=== PATIENT | female | born 1935 | race Caucasian/White ===

== ENCOUNTER 2020-02-12 19:24 | Inpatient (IN) | payer MEDICARE ==
[~2020-02-12] VITALS: Ht 162.6 cm; Wt 83.1 kg
[2020-02-12 19:38] VITALS: BP 211/99
[2020-02-12] MEDS ORDERED: METFORMIN HCL500 M3 PO ×2 (19:42→21:58)
[2020-02-12 20:08] LABS: URINE BILIRUBIN NEGATIVE (Negative); URINE BLOOD NEGATIVE (Negative); URINE CLARITY CLEAR; URINE COLOR YELLOW; URINE GLUCOSE-RANDOM NEGATIVE (Negative); URINE KETONES 1+ (Negative); URINE LEUKOCYTES-REFLEX TRACE (Negative); URINE PROTEIN TRACE (Negative); URINE UROBILINOGEN 0.2 E.U./dl (0.2-1.0)
[2020-02-12 20:10] LABS: URINE NITRITE-REFLEX POSITIVE (Negative)
[2020-02-12 20:21] LABS: ABSOLUTE LYMPHOCYTES 0.9 thou/uL (0.8-5.3); ABSOLUTE MONOCYTES 0.5 thou/uL (0.0-1.2); ABSOLUTE NEUTROPHILS 7.4 thou/uL (1.6-8.1); BASOPHILS 0.4 %; HEMATOCRIT 37.2 % (37.0-47.0); HEMOGLOBIN 12.3 gm/dL (12.0-15.0); LYMPHOCYTES 9.7 %; MCH 28.3 pg (26.0-34.0); MCHC 33.1 g/dL (28.0-37.0); MCV 85.5 fL (80.0-100.0); MONOCYTES 5.6 %; MPV 7.3 fl. (7.2-11.1); NUCLEATED RBCS 0 /100WBC; PLATELET COUNT* 256 thou/uL (150-400); POLYS 84.3 %; RBC 4.35 mil/uL (4.20-5.00); RDW-CV 17.7 % (10.5-14.5); WBC 8.8 thou/uL (4.0-11.0)
[2020-02-12 20:24] LABS: BACTERIA-REFLEX >30 Many /HPF (None Seen); CASTS None Seen /LPF (None Seen); CRYSTALS None Seen /LPF (None Seen); SQUAMOUS 0-3 Few /LPF (0-3); URINE WBC-REFLEX >25 Many /HPF (0-5)
[2020-02-12 20:25] LABS: URINE RBC 0-2 Rare /HPF (0-2)
[2020-02-12 20:26] LABS: CALCIUM 9.2 mg/dL (8.5-10.1); CREATININE 1.2 mg/dL (0.6-1.3)
[2020-02-12 20:36] LABS: ALBUMIN 3.9 g/dL (3.4-5.0); MAGNESIUM 1.6 mg/dL (1.8-2.4); TOTAL BILIRUBIN 0.6 mg/dL (<0.1-1.0); TOTAL PROTEIN 7.7 g/dL (6.4-8.2)
[2020-02-12] MEDS ORDERED: MELATONIN3 M1 PO (21:57)
[2020-02-12] MEDS ORDERED: FLEXERIL PO (21:57)
[2020-02-12] MEDS ORDERED: POTASSIUM20 PO (21:58)
[2020-02-12] MEDS ORDERED: HYDROCHLOROTHIA25 M2 PO (21:58)
[2020-02-12] MEDS ORDERED: ASA81BEC PO (21:58)
[2020-02-12] MEDS ORDERED: VESICARE 5 MG TA5 M1 PO (21:59)
[2020-02-12] MEDS ORDERED: DILTIAZEM HCL30 MG PO (21:59)
[2020-02-12] MEDS ORDERED: HYDRALAZINE 2525 MG PO (21:59)
[2020-02-12] MEDS ORDERED: DICYCLOMINE HCL20 MG PO (22:00)
[2020-02-12] MEDS ORDERED: XANAX 0.5 MG0.5 MG PO (22:00)
[2020-02-12] MEDS ORDERED: TRAZODONE HCL100 MG PO (22:00)
[2020-02-12] MEDS ORDERED: LEXAPRO 10 MG T10 M1 PO (22:00)
[2020-02-12] MEDS ORDERED: PROTONIX40 M4 PO (22:01)
[2020-02-12] MEDS ORDERED: LEVOTHYROXINE88 MC1 PO (22:01)
[2020-02-12] MEDS ORDERED: LIPITOR40 MG PO (22:01)
[2020-02-12] MEDS ORDERED: DOXEPIN 50MG CA50 M1 PO (22:01)
[2020-02-12] MEDS ORDERED: ELIQUIS2.5 MG PO (22:02)
[2020-02-12 22:30] VITALS: BP 175/86
[2020-02-12 23:00] VITALS: BP 154/84
[2020-02-13] VITALS (7 sets, daily range): BP systolic 122–156; BP diastolic 58–97
--- NOTE | 2020-02-13 09:07 | EKG ---
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: EDWINA Montanez : 1935 Requested By: Poonam Ray Order Number: [id number] MD: Dre Bey Measurements Intervals [place] Rate: 87 P: 61 [place]: 238 QRS: 8 QRSD: 113 T: 8 QT: 371 QTc: 447 Interpretive Statements Sinus rhythm old anterior infarction Prolonged [place] interval LVH with secondary repolarization abnormality No previous ECG available for comparison Electronically Signed On 02-13-2020 9:06:56 SYSTEMS INTEGRATOR by Dre Bey [email or web address] <ELECTRONICALLY SIGNED> By: Dre Bey MD, FACC 02/13/20 0906 33 33 Dre Bey MD, [facility] /EPI
[2020-02-14 05:40] VITALS: BP 134/66
[2020-02-14 07:40] VITALS: BP 143/62
[2020-02-14] MEDS ORDERED: MACROBID 100 M100 MG PO (07:47)
[2020-02-14] MEDS ORDERED: ZOFRAN 4 MG ORAL4 MG PO (07:47)
[2020-02-14 08:27] VITALS: BP 134/66
[2020-02-14 09:46] LABS: HEMATOCRIT 32.3 % (37.0-47.0); HEMOGLOBIN 10.7 gm/dL (12.0-15.0); MCH 28.9 pg (26.0-34.0); MCHC 33.1 g/dL (28.0-37.0); MCV 87.1 fL (80.0-100.0); MPV 7.4 fl. (7.2-11.1); RBC 3.7 mil/uL (4.20-5.00); RDW-CV 17.3 % (10.5-14.5); WBC 5.7 thou/uL (4.0-11.0)
[2020-02-14 10:10] VITALS: BP 134/66
[2020-02-14 10:12] LABS: ALBUMIN 3.1 g/dL (3.4-5.0); CALCIUM 8.3 mg/dL (8.5-10.1); POTASSIUM 3.1 mmol/L (3.5-5.1); TOTAL BILIRUBIN 0.5 mg/dL (<0.1-1.0); TOTAL PROTEIN 6.3 g/dL (6.4-8.2)
[2020-02-14 13:01] VITALS: BP 134/66
== END 2020-02-14 13:06 | disposition home or self-care (01) | DRG 690 ==
LOC: M.ERS 19:24 → M.TBA-ER 21:17 → M.3W 21:17
PROVIDERS: Emergency Medicine; Internal Medicine; ADMIT Internal Medicine; ATTEND Internal Medicine
DX: N39.0 Urinary tract infection, site not specified (principal); E87.1 Hypo-osmolality and hyponatremia; D68.69 Other thrombophilia; E11.9 Type 2 diabetes mellitus without complications; E87.6 Hypokalemia; E83.42 Hypomagnesemia; I48.91 Unspecified atrial fibrillation; K59.00 Constipation, unspecified; Z20.828 Contact with and (suspected) exposure to other viral communicable diseases; Z79.84 Long term (current) use of oral hypoglycemic drugs; Z85.3 Personal history of malignant neoplasm of breast; Z90.12 Acquired absence of left breast and nipple; Z79.82 Long term (current) use of aspirin; Z79.899 Other long term (current) drug therapy; Z23 Encounter for immunization; Z88.2 Allergy status to sulfonamides; Z91.048 Other nonmedicinal substance allergy status

== ENCOUNTER 2020-05-02 16:28 | Emergency (ER) | payer OTHER ==
[~2020-05-02] VITALS: Ht 162.6 cm; Wt 78.0 kg
[~2020-05-02 16:28] MED LIST: ASA81BEC PO; DICYCLOMINE HCL20 MG PO; DILTIAZEM HCL30 MG PO; DOXEPIN 50MG CA50 M1 PO; ELIQUIS2.5 MG PO; FLEXERIL PO; HYDRALAZINE 2525 MG PO; HYDROCHLOROTHIA25 M2 PO; LEVOTHYROXINE88 MC1 PO; LEXAPRO 10 MG T10 M1 PO; LIPITOR40 MG PO; MACROBID 100 M100 MG PO; MELATONIN3 M1 PO; METFORMIN HCL500 M3 PO; POTASSIUM20 PO; PROTONIX40 M4 PO; TRAZODONE HCL100 MG PO; VESICARE 5 MG TA5 M1 PO; XANAX 0.5 MG0.5 MG PO; ZOFRAN 4 MG ORAL4 MG PO
[2020-05-02 17:06] LABS: HEMATOCRIT 41.3 % (37.0-47.0); HEMOGLOBIN 13.4 gm/dL (12.0-15.0); MCH 28.7 pg (26.0-34.0); MCHC 32.5 g/dL (28.0-37.0); MCV 88.3 fL (80.0-100.0); MPV 7.8 fl. (7.2-11.1); NUCLEATED RBCS 0 /100WBC; PLATELET COUNT* 275 thou/uL (150-400); RBC 4.68 mil/uL (4.20-5.00); RDW-CV 13.6 % (10.5-14.5); WBC 14.3 thou/uL (4.0-11.0)
[2020-05-02 17:12] LABS: CALCIUM 9.4 mg/dL (8.5-10.1); CREATININE 1.2 mg/dL (0.6-1.3); POTASSIUM 3.8 mmol/L (3.5-5.1)
[2020-05-02 17:16] LABS: APTT 25.4 Seconds (25.0-31.3); PROTIME 10.5 Seconds (9.20-11.50)
[2020-05-02 17:17] LABS: ALBUMIN 3.6 g/dL (3.4-5.0); TOTAL BILIRUBIN 0.6 mg/dL (<0.1-1.0); TOTAL PROTEIN 7.4 g/dL (6.4-8.2)
[2020-05-02 17:46] LABS: ABSOLUTE LYMPHOCYTES 0.3 thou/uL (0.8-5.3); ABSOLUTE MONOCYTES 0.9 thou/uL (0.0-1.2); PLATELET ESTIMATE ADEQUATE
[2020-05-02 17:47] LABS: ABSOLUTE BASOPHILS 0.1 thou/uL (0.0-0.2)
[2020-05-02] MEDS ORDERED: ZOFRAN ODT4 MG PO (18:55)
[2020-05-02 19:19] LABS: URINE BILIRUBIN NEGATIVE (Negative); URINE BLOOD NEGATIVE (Negative); URINE CLARITY CLEAR; URINE COLOR YELLOW; URINE GLUCOSE-RANDOM NEGATIVE (Negative); URINE KETONES NEGATIVE (Negative); URINE LEUKOCYTES-REFLEX NEGATIVE (Negative); URINE NITRITE-REFLEX NEGATIVE (Negative); URINE PROTEIN NEGATIVE (Negative); URINE UROBILINOGEN 0.2 E.U./dl (0.2-1.0)
[2020-05-02 19:47] VITALS: BP 159/77
--- NOTE | 2020-05-03 09:30 | EKG ---
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: [facility] : 1935 Requested By: Iveth Ayala Order Number: [id number] MD: Sreedhar Putnam Measurements Intervals [place] Rate: 96 P: 69 [place]: 213 QRS: -10 QRSD: 95 T: 150 QT: 354 QTc: 448 Interpretive Statements Sinus rhythm Ventricular premature complex Borderline prolonged [place] interval LVH with secondary repolarization abnormality Anterior infarct, old Compared to ECG 02/12/2020 19:34:44 Ventricular premature complex(es) now present Myocardial infarct finding still present Electronically Signed On 05-03-2020 9:30:34 BARIATRIC SURGEON by Sreedhar Putnam [email or web address] <ELECTRONICALLY SIGNED> By: Sreedhar Putnam MD, FACC 05/03/20 0930 1659 1659 Sreedhar Putnam MD, FAC /EPI
== END 2020-05-02 19:49 | disposition home or self-care (01) ==
LOC: M.ERS 16:28
PROVIDERS: Nurse Practitioner Family
DX: K59.00 Constipation, unspecified (principal); R11.2 Nausea with vomiting, unspecified; I48.91 Unspecified atrial fibrillation; E11.9 Type 2 diabetes mellitus without complications; I10 Essential (primary) hypertension; E78.5 Hyperlipidemia, unspecified; E03.9 Hypothyroidism, unspecified; K21.9 Gastro-esophageal reflux disease without esophagitis; Z88.1 Allergy status to other antibiotic agents; Z88.2 Allergy status to sulfonamides; Z79.899 Other long term (current) drug therapy